=== PATIENT | male | born 2000 | race Hispanic/Latino ===

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

== ENCOUNTER 2023-09-09 20:12 | Emergency (ER) | payer SELFPAY ==
[~2023-09-09] VITALS: Ht 170.2 cm; Wt 53.5 kg
[2023-09-09] MEDS ORDERED: SODIUM CHLORIDE 0.9% 1000ML 1,000 ML IV ONE (20:30)
[2023-09-09] MEDS ORDERED: ONDANSETRON HCL INJ 2MG/ML 2ML 2 MG/ML VIAL IV STA (21:03)
[2023-09-09] MEDS ORDERED: METOPROLOL TARTRATE INJ 1 MG/ML VIAL ONE (21:04)
[2023-09-09 21:08] VITALS: BP 142/118; PULSE 102
[2023-09-09] MEDS ORDERED: METOPROLOL TARTRATE INJ 1 MG/ML VIAL IV ONE (21:15)
[2023-09-09] MEDS ORDERED: HALOPERIDOL LACTATE 5 MG/ML VIAL IV ONE (21:15)
[2023-09-09 21:18] LABS: BASOPHILS % 0.3 % (0.0-1.0); EOSINOPHILS % 0.3 % (0.0-6.0); HEMATOCRIT 40.9 % (38.2-49.6); HEMOGLOBIN 14.1 g/dL (14.0-18.0); LYMPHOCYTES % 22.2 % (18.0-39.1); MEAN CORPUSCULAR HEMOGLOBIN 29.4 pg (28-32); MEAN CORPUSCULAR HGB CONC 34.5 g/dL (31-35); MEAN CORPUSCULAR VOLUME 85.2 fL (81-99); MONOCYTES # (AUTO) 0.5 (0.2-0.8); MONOCYTES % 5.6 % (4.4-11.3); NEUTROPHILS # (AUTO) 6.5 (2.1-6.9); NEUTROPHILS % 70.8 % (38.7-80.0); PLATELET COUNT 220 x10e3/uL (140-360); RED CELL DISTRIBUTION WIDTH 12.1 % (11.7-14.4); WHITE BLOOD COUNT 9.11 x10e3/uL (4.8-10.8)
[2023-09-09 21:37] LABS: ALBUMIN 4.6 g/dL (3.5-5.0); ALBUMIN/GLOBULIN RATIO 1.8 (0.8-2.0); ANION GAP 19.2 mmol/L (8-16); BILIRUBIN,TOTAL 0.7 mg/dL (0.2-1.2); CALCIUM 9.3 mg/dL (8.4-10.2); CREATININE, SERUM 0.84 mg/dL (0.72-1.25); TOTAL PROTEIN 7.1 g/dL (6.5-8.1)
[2023-09-09 21:39] LABS: POTASSIUM 3.2 mmol/L (3.5-5.1)
[2023-09-09 21:58] LABS: T3 UPTAKE 34.02 % (22.5-37.0); T4 (THYROXINE) 5.94 ug/dL (4.5-10.9); THYROID STIMULATING HORMONE 0.522 uIU/mL (0.350-4.940)
[2023-09-09] MEDS ORDERED: IOPAMIDOL 370 MG/ML 100 ML INFUS..BTL INJ ONE (21:58)
[2023-09-09] MEDS ORDERED: DIPHENHYDRAMINE HCL INJ 50 MG/ML VIAL IV ONE (22:00)
[2023-09-09 22:05] LABS: TROPONIN I < 0.001 ng/mL (0-0.300)
[2023-09-09 22:27] LABS: AMPHETAMINES SCREEN,URINE NEGATIVE (NEGATIVE); BACTERIA,URINE FEW /HPF; BENZODIAZEPINES SCREEN,URINE NEGATIVE (NEGATIVE); BILIRUBIN,URINE NEGATIVE (NEGATIVE); CANNABINOIDS SCREEN,URINE POSITIVE (NEGATIVE); CLARITY,URINE CLEAR (CLEAR); COLOR,URINE YELLOW (YELLOW); EPITHELIAL CELLS,URINE FEW /LPF; GLUCOSE, URINE NEGATIVE (NEGATIVE); KETONES,URINE NEGATIVE (NEGATIVE); LEUKOCYTE ESTERASE ,URINE NEGATIVE (NEGATIVE); METHADONE SCREEN, URINE NEGATIVE (NEGATIVE); NITRITE,URINE NEGATIVE (NEGATIVE); OPIATES SCREEN,URINE NEGATIVE (NEGATIVE); PH,URINE 7 (5 - 7); PHENCYCLIDINE SCREEN,URINE NEGATIVE (NEGATIVE); PROTEIN,URINE DIPSTICK NEGATIVE (NEGATIVE); RBC,URINE 0-5 /HPF (0-5); URINE UROBILINOGEN 0.2 mg/dL (0.2 - 1); WBC,URINE (MAN) 0-5 /HPF (0-5)
[2023-09-10 00:10] VITALS: O2SAT 100
[2023-09-10] MEDS ORDERED: PROMETHAZINE HC25 M1 PO (00:17)
[2023-09-10] MEDS ORDERED: PANTOPRAZOLE SO40 MG PO (00:17)
== END 2023-09-10 00:21 | disposition home or self-care (01) ==
LOC: ER 20:15
DX: R00.0 Tachycardia, unspecified (principal); R07.89 Other chest pain; R10.33 Periumbilical pain; R11.2 Nausea with vomiting, unspecified
CPT/HCPCS: 36415; 71045; 71260; 74177; 80053; 80307; 81001; 84436; 84443; 84479; 84484; 85025; 93005; 99284; C9113; J1200; J1630; J2405; J7030; Q9967

== ENCOUNTER → 2024-09-06 | Outpatient (REF) | payer OTHER ==
[~2024-09-06] MED LIST changes: +BUPROPION HCL100 MG PO; +DICYCLOMINE HCL10 MG PO; +FLAX SEED OIL1 EACH PO; +HYDROCHLOROTHIA25 MG PO; +MULTIVITAMIN1 EACH PO; +NEURONTIN400 MG PO; +PANTOPRAZOLE SO40 MG PO; +PEPCID20 MG PO; +PROMETHAZINE HC25 M1 PO; +SUMATRIPTAN SUC50 MG
== END ==
LOC: US 10:27
PROVIDERS: ATTEND Nurse Practitioner
DX: R10.84 Generalized abdominal pain (principal)
CPT/HCPCS: 76700

== ENCOUNTER 2024-11-13 09:44 | Emergency (ER) | payer SELFPAY ==
[~2024-11-13] VITALS: Ht 170.2 cm; Wt 53.5 kg
[~2024-11-13 09:44] MED LIST changes: -SUMATRIPTAN SUC50 MG
[2024-11-13 09:48] VITALS: TEMP 98
[2024-11-13] MEDS ORDERED: SUMATRIPTAN SUC50 MG (10:02)
[2024-11-13] MEDS: SODIUM CHLORIDE 0.9% 1000ML 1,000 ML IV ONE (10:12)
[2024-11-13 10:13] LABS: BASOPHILS % 0.3 % (0.0-1.0); EOSINOPHILS % 0.1 % (0.0-6.0); HEMATOCRIT 44.5 % (38.2-49.6); HEMOGLOBIN 15.3 g/dL (14.0-18.0); LYMPHOCYTES # (AUTO) 1.6 (1.0-3.2); LYMPHOCYTES % 16.4 % (18.0-39.1); MEAN CORPUSCULAR HEMOGLOBIN 28.8 pg (28-32); MEAN CORPUSCULAR HGB CONC 34.4 g/dL (31-35); MEAN CORPUSCULAR VOLUME 83.8 fL (81-99); MONOCYTES # (AUTO) 0.5 (0.2-0.8); MONOCYTES % 5.4 % (4.4-11.3); NEUTROPHILS # (AUTO) 7.3 (2.1-6.9); NEUTROPHILS % 75.6 % (38.7-80.0); PLATELET COUNT 262 x10e3/uL (140-360); RED BLOOD COUNT 5.31 x10e6/uL (4.3-5.7); RED CELL DISTRIBUTION WIDTH 13.3 % (11.7-14.4); WHITE BLOOD COUNT 9.64 x10e3/uL (4.8-10.8)
[2024-11-13] MEDS: METOCLOPRAMIDE HCL 10 MG/2ML VIAL IV ONE (10:19)
[2024-11-13 10:30] VITALS: PULSE 94; RESP 18; O2SAT 98
[2024-11-13 11:12] LABS: ALBUMIN 4.5 g/dL (3.5-5.0); ALBUMIN/GLOBULIN RATIO 1.4 (0.8-2.0); ANION GAP 17.8 mmol/L (8-16); BILIRUBIN,TOTAL 0.6 mg/dL (0.2-1.2); CALCIUM 9.4 mg/dL (8.4-10.2); CREATININE, SERUM 0.78 mg/dL (0.72-1.25); POTASSIUM 3.8 mmol/L (3.5-5.1); TOTAL PROTEIN 7.7 g/dL (6.5-8.1)
== END 2024-11-13 10:50 | disposition left against medical advice (07) ==
LOC: ER 09:50
DX: R10.13 Epigastric pain (principal); R11.2 Nausea with vomiting, unspecified; F90.9 Attention-deficit hyperactivity disorder, unspecified type
CPT/HCPCS: 36415; 80053; 80320; 83690; 85025; 93005; 99284; J2470; J2765; J7030